=== PATIENT | male | born 1960 | race Caucasian/White ===

== ENCOUNTER 2018-07-14 15:27 | Emergency (ER) | payer OTHER, SELFPAY ==
[~2018-07-14] VITALS: Ht 185.4 cm; Wt 122.4 kg
[2018-07-14 15:30] VITALS: BP 155/51
[2018-07-14] MEDS ORDERED: LIDOCAINE 1%-EPI 1:100K, 30ML ONE (15:46)
[2018-07-14] MEDS ORDERED: LIDOCAINE 2%, 20ML SQ ONE (16:00)
[2018-07-14] MEDS ORDERED: BACITRACIN ZINC OINT 500U/GM, 0.9 GM ONE (17:04)
== END 2018-07-14 17:16 | disposition home or self-care (01) ==
LOC: ED 16:50
DX: S51.812A Laceration without foreign body of left forearm, initial encounter (principal); I10 Essential (primary) hypertension; W22.8XXA Striking against or struck by other objects, initial encounter; Y93.89 Activity, other specified; Y99.0 Civilian activity done for income or pay; Y92.69 Other specified industrial and construction area as the place of occurrence of the external cause
CPT/HCPCS: 12002

== ENCOUNTER 2019-08-28 09:32 | Emergency (ER) | payer OTHER ==
[~2019-08-28] VITALS: Ht 185.4 cm; Wt 134.0 kg
--- NOTE | 2019-08-28 10:06 | NUR ---
PT PRESENTED TO ED D/T RIGHT KNEE REDNESS, SWELLING, AND PAIN. PT STATED STARTED ON THURSDAY. HX OF GOURT TO RIGHT BIG TOE.
[2019-08-28] MEDS ORDERED: LISI-170 PO (10:07)
[2019-08-28] MEDS ORDERED: MORPHINE SULFATE 4 MG/ML, 1ML ONE ×2 (10:19→10:48)
[2019-08-28] MEDS: MORPHINE SULFATE 4 MG/ML, 1ML IVPush PRN ×2 (10:26→10:50)
[2019-08-28] MEDS ORDERED: SODIUM CHLORIDE FLUSH 10ML SYR IVF ONE (10:30)
[2019-08-28 10:38] LABS: BASOPHILS # (AUTO) 0.04 x10^3/uL (0-0.1); BASOPHILS % (AUTO) 0 % (0-1); EOSINOPHILS # (AUTO) 0.14 x10^3/uL (0-0.4); EOSINOPHILS % (AUTO) 1 % (1-7); LYMPHOCYTES # (AUTO) 2.01 x10^3/uL (1-3.4); LYMPHOCYTES % (AUTO) 18 % (22-44); MD NO; MEAN CORPUSCULAR HEMOGLOBIN 29.1 pg (27.5-34.5); MEAN CORPUSCULAR HGB CONC 32.9 g/dL (33.2-36.2); MEAN CORPUSCULAR VOLUME 88.3 fL (81-97); MEAN PLATELET VOLUME 8.8 fL (7.4-10.4); MONOCYTES # (AUTO) 0.92 x10^3/uL (0.2-0.8); MONOCYTES % (AUTO) 8 % (2-9); NEUTROPHILS # (AUTO) 8.06 x10^3/uL (1.8-6.8); NEUTROPHILS % (AUTO) 72 % (42-75); PLATELET COUNT 215 x10^3/uL (130-400); RED BLOOD COUNT 5.86 x10^6/uL (4.38-5.82); RED CELL DISTRIBUTION WIDTH 13.5 % (9.4-14.8)
--- NOTE | 2019-08-28 10:38 | NUR ---
PT BEING WHEELED BACK TO ROOM VIA GURNEY FROM XR.
[2019-08-28 10:40] LABS: HCT (SEDRATE) 51.7 % (39.2-51.8)
[2019-08-28 10:49] LABS: ALBUMIN 3.9 g/dL (3.4-5.0); ANION GAP 7 mmol/L (5-15); CALCIUM 8.7 mg/dL (8.5-10.1); CHLORIDE 107 mmol/L (98-107); CREATININE 1.18 mg/dL (0.7-1.3)
--- NOTE | 2019-08-28 10:50 | NUR ---
RN REASSESSED PAIN AFTER 1/2 DOSES OF MORPHINE ADMINISTERED PER EMAR. PT STATED 7/10 PAIN AT THIS TIME. RN TO ADMINISTER 2/2 DOSES OF MORPHINE PER EMAR.
[2019-08-28 11:25] VITALS: BP 138/79
--- NOTE | 2019-08-28 11:26 | NUR ---
RN REASSESSED PAIN AFTER ADMINISTRATION OF 2/2 DOSES OF MORPHINE. PT STATED 6/10 PAIN AT THIS TIME. VITAL SIGN MONITORING. VSS. AT BEDSIDE. AWAITING RECHECK FROM PROVIDER. NO OTHER NEEDS AT THIS TIME.
== END 2019-08-28 12:16 | disposition home or self-care (01) ==
LOC: ED 10:38
DX: M10.061 Idiopathic gout, right knee (principal); M13.161 Monoarthritis, not elsewhere classified, right knee; I10 Essential (primary) hypertension
CPT/HCPCS: 36415; 73564; 80048; 82040; 84550; 85025; 85651; 86140; 96374; 99284; J2270